=== PATIENT | male | born 1995 | race Caucasian/White ===

== ENCOUNTER 2016-04-09 09:58 | Emergency (ER) | payer OTHER ==
--- NOTE | 2016-04-09 13:59 | Emergency Department Report ---
ED Lower Extremity HPI - General Chief Complaint: Extremity Injury, Lower Stated Complaint: LT LEG PAIN/FALL Time Seen by Provider: 04/09/16 13:58 Source: patient, family Mode of arrival: Ambulatory Limitations: No Limitations - History of Present Illness Initial Comments: Patient here reports that he slipped and fell off the porch a few weeks ago and complaining of left knee pain. Denies any back pain, chest pain, headache or neck pain. Pain is 8 out of 10 to the left knee. He said he took Tylenol but it didn't work for him. Denies any dizziness or blurred vision. Denies any numbness or tingling to extremities. MD Complaint: knee injury (and pain) Onset/Timin -: week(s) Injury: Knee: Left (pain after falling.) Type of Injury: hyperextension Place: home Severity: severe Severity scale (0 -10): 8 Improves With: nothing Worsens With: weight bearing, movement Context: fall Associated Symptoms: ambulatory. denies: snap/pop sensation, swelling, numbness , tingling Treatments Prior to Arrival: other (none) - Related Data Previous Rx's Medication Instructions Recorded Last Taken Type traMADol [Ultram] 50 mg PO Q6HR PRN #20 tablet 04/09/16 Unknown Rx Allergies Allergy/AdvReac Type Severity Reaction Status Date / Time No Known Allergies Allergy Unverified 04/09/16 12:03 ED Review of Systems ROS: Stated complaint: LT LEG PAIN/FALL Other details as noted in HPI Comment: All other systems reviewed and negative Constitutional: denies: chills, fever Respiratory: no symptoms reported Cardiovascular: denies: chest pain, palpitations, edema, syncope Gastrointestinal: denies: abdominal pain, nausea, vomiting Musculoskeletal: arthralgia. denies: back pain, joint swelling Skin: denies: rash Neurological: denies: headache, weakness, numbness, paresthesias, confusion, abnormal gait, vertigo ED Past Medical Hx - Past Medical History Previous Medical History?: No - Surgical History Past Surgical History?: No - Family History Family history: no significant - Social History Smoking Status: Never Smoker Substance Use Type: None - Medications Home Medications: Home Medications Medication Instructions Recorded Confirmed Last Taken Type traMADol [Ultram] 50 mg PO Q6HR PRN #20 tablet 04/09/16 Unknown Rx ED Physical Exam - General Limitations: No Limitations General appearance: alert, in no apparent distress - Head Head exam: Present: atraumatic, normocephalic, normal inspection - Neck Neck exam: Present: normal inspection, full ROM. Absent: tenderness, meningismus, lymphadenopathy - Respiratory Respiratory exam: Present: normal lung sounds bilaterally. Absent: respiratory distress, chest wall tenderness - Cardiovascular Cardiovascular Exam: Present: normal rhythm, bradycardia, normal heart sounds - GI/Abdominal GI/Abdominal exam: Present: soft, normal bowel sounds. Absent: distended, tenderness, guarding, rebound, rigid - Extremities Exam Extremities exam: Present: normal inspection, full ROM, tenderness (left anterior knee), normal capillary refill. Absent: pedal edema, joint swelling, calf tenderness - Expanded Lower Extremity Exam Left Hip exam: Present: normal inspection, full ROM, pelvic stability. Absent: tenderness, swelling, abrasion, laceration, ecchymosis, deformity, crepidus, dislocation, erythema, external rotation, internal rotation, shortening Upper Leg exam: Present: normal inspection, full ROM. Absent: tenderness, swelling, abrasion, laceration, ecchymosis, deformity, crepidus, dislocation, erythema Knee exam: Present: normal inspection, full ROM, tenderness, full knee extension. Absent: swelling, abrasion, laceration, ecchymosis, deformity, crepidus, dislocation, erythema, effusion, pain w/ pronation/supination, posterior draw sign, pain/laxity with valgus, pain/laxity with varus Lower Leg exam: Present: normal inspection, full ROM. Absent: tenderness, swelling, abrasion, laceration, ecchymosis, deformity, crepidus, dislocation, erythema, palpable cord, Kimberly's sign Ankle exam: Present: normal inspection, full ROM. Absent: tenderness, swelling , abrasion, laceration, ecchymosis, deformity, crepidus, dislocation, erythema, anterior draw sign Foot/Toe exam: Present: normal inspection, full ROM. Absent: tenderness, swelling, abrasion, laceration, ecchymosis, deformity, crepidus, dislocation, erythema, amputation, puncture wound, foreign body, calcaneal tenderness, tenderness at base of 5th metatarsal, nail avulsion, subungual hematoma Neuro vascular tendon exam: Present: no vascular compromise. Absent: pulse deficit, abnormal cap refill, motor deficit, sensory deficit, tendon deficit, extremity cold to touch, pallor, abnormal 2-point discrimination, decreased fine /light touch, foot drop, peroneal nerve deficit, significant pain with passive ROM of distal joint Gait: Positive: observed and normal - Back Exam Back exam: Present: normal inspection, full ROM. Absent: tenderness, CVA tenderness (R), CVA tenderness (L), muscle spasm, paraspinal tenderness, vertebral tenderness, rash noted - Neurological Exam Neurological exam: Present: alert, oriented X3, normal gait, reflexes normal. Absent: motor sensory deficit - Psychiatric Psychiatric exam: Present: normal affect, normal mood - Skin Skin exam: Present: warm, dry, intact, normal color. Absent: rash ED Course Vital Signs 04/09/16 12:00 Temperature 97.7 F Pulse Rate 54 L Respiratory 18 Rate Blood Pressure 138/81 O2 Sat by Pulse 100 Oximetry - Reevaluation(s) Reevaluation #1: 04/09/16 14:24 Patient given [place] one tablet in emergency room for left knee pain. - Orthopedic Splinting/Casting Injury #1 Side: left Lower Extremity Injury Location: knee Lower Extremity Immobilizer: Maycol wrap ED Lower Extremity MDM - Radiology Data Radiology results: report reviewed X-ray of the left knee reads unremarkable left knee. - Medical Decision Making ED course: She given [place] 5/325 one tablets emergency room for left knee pain. Discussed with patient that his left knee is x-ray revealed no fracture or dislocation. I explained to patient that he will need to follow-up with orthopedic doctor if he still continues to have left knee pain. Seizure note for splinting details. Patient discharged home with prescription for Motrin. Critical care attestation.: If time is entered above; I have spent that time in minutes in the direct care of this critically ill patient, excluding procedure time. ED Disposition Clinical Impression: Arthralgia of left knee Left knee injury Qualifiers: Encounter type: sequela Qualified Code(s): S89.92XS - Unspecified injury of left lower leg, sequela Disposition: DISCHARGED TO HOME OR SELFCARE Is pt being admited?: No Does the pt Need Aspirin: No Condition: Stable Instructions: Arthralgia (ED), Knee Pain (ED), Knee Exercises (GEN) Prescriptions: traMADol [Ultram] 50 mg PO Q6HR PRN #20 tablet PRN Reason: Pain Referrals: STEVIE BA MD [Staff Physician] - 2-3 Days Forms: Work/School Release Form(ED)
[2016-04-09] MEDS ORDERED: NORCO 5/325 PO ONE (14:04)
--- NOTE | 2016-04-09 14:29 | XRay Report ---
LEFT KNEE, 3 views: History: Left knee pain after fall. The bony architecture is intact without evidence of fracture or dislocation. No significant soft tissue abnormality is seen. IMPRESSION: Unremarkable left knee.
[2016-04-09 15:09] VITALS: BP 134/80
== END 2016-04-09 15:08 | disposition home or self-care (01) ==
LOC: ED 09:58
DX: S89.92XS Unspecified injury of left lower leg, sequela (principal); W01.0XXA Fall on same level from slipping, tripping and stumbling without subsequent striking against object, initial encounter; Y93.89 Activity, other specified; Y92.89 Other specified places as the place of occurrence of the external cause; Y99.8 Other external cause status
CPT/HCPCS: 99283

== ENCOUNTER 2016-09-28 13:14 | Emergency (ER) | payer SELFPAY ==
[2016-09-28 14:43] LABS: Urine Drugs of Abuse Note Disclamer
[2016-09-28 14:52] LABS: Bacteria,Urine 1+ /HPF (Negative); Bilirubin,Urine NEG (Negative); Blood,Urine MOD (Negative); Ketones,Urine NEG (Negative); Leukocyte Esterase,Urine NEG (Negative); Mucus,Urine 3+ /HPF; Nitrite,Urine NEG (Negative); Urobilinogen,Urine < 2.0 mg/dL (<2.0)
[2016-09-28 14:58] LABS: Basophils % (Auto) 0.3 % (0.0-1.8); Eosinophils % (Auto) 0.6 % (0.0-4.3); Hematocrit 44.7 % (35.5-45.6); Hemoglobin 14.9 gm/dl (11.8-15.2); Mean Corpuscular HGB Conc 33 % (32-34); Mean Corpuscular Hemoglobin 29 pg (28-32); Mean Corpuscular Volume 86 fl (84-94); Platelet Count 315 K/mm3 (140-440); Red Blood Count 5.22 M/mm3 (3.65-5.03); White Blood Count 12.2 K/mm3 (4.5-11.0)
[2016-09-28 15:47] LABS: Anion Gap 23 mmol/L; BUN/Creatinine Ratio 13.75; Blood Urea Nitrogen 11 mg/dL (9-20); Calcium 9.5 mg/dL (8.4-10.2); Carbon Dioxide 22 mmol/L (22-30); Chloride 95.6 mmol/L (98-107); Glucose 100 mg/dL (75-100); Potassium 3.9 mmol/L (3.6-5.0); Sodium 137 mmol/L (137-145)
[2016-09-29] MEDS ORDERED: MORPHINE IV ONE (02:57)
[2016-09-29] MEDS ORDERED: ZOFRAN IV ONE (02:57)
[2016-09-29] MEDS ORDERED: TORADOL IV ONE (02:57)
[2016-09-29] MEDS ORDERED: NACL 0.9% 1000 ML 1,000 ML IV ONE (02:57)
--- NOTE | 2016-09-29 03:01 | Emergency Department Report ---
HPI - General Chief Complaint: Nausea/Vomiting/Diarrhea Time Seen by Provider: 09/29/16 02:53 - HPI HPI: Patient complains of cough, ear pain, chest pain, shortness of breath, nausea, vomiting, diarrhea. Symptoms as well as going on for the past 2 days and did not improve from [id number] medications. ED Past Medical Hx - Past Medical History Previous Medical History?: No - Surgical History Past Surgical History?: No - Family History Family history: no significant - Social History Smoking Status: Current Every Day Smoker Substance Use Type: Marijuana - Medications Home Medications: Home Medications Medication Instructions Recorded Confirmed Last Taken Type Azithromycin [Zithromax] 250 mg PO DAILY #6 tablet 09/29/16 Unknown Rx Sulfamethoxazole/Trimethoprim 1 each PO BID #20 tablet 09/29/16 Unknown Rx [Bactrim DS TAB] traMADol [Ultram 50 MG tab] 50 mg PO Q6HR PRN #20 tablet 09/29/16 Unknown Rx ED Review of Systems ROS: Stated complaint: BODY PAIN Other details as noted in HPI Comment: All other systems reviewed and negative Respiratory: shortness of breath Cardiovascular: chest pain Physical Exam - Physical Exam Vital Signs: Vital Signs 09/28/16 09/28/16 09/29/16 14:15 20:49 02:06 Temperature 98.3 F 98.2 F Pulse Rate 90 80 Respiratory 16 18 Rate Blood Pressure 142/80 142/80 Blood Pressure [Left] O2 Sat by Pulse 97 96 96 Oximetry 09/29/16 02:17 Temperature 98.2 F Pulse Rate 82 Respiratory 17 Rate Blood Pressure Blood Pressure 139/73 [Left] O2 Sat by Pulse 97 Oximetry Physical Exam: Gen. alert and oriented 3 in no distress Head atraumatic normocephalic Eyes PERR LA EOMI Chest regular rate and rhythm normal S1-S2 lungs decreased breath sound bilaterally Abdomen soft nondistended Back no point tenderness paravertebral tenderness Neuro no focal deficit. Psych normal mood. ED Course Vital Signs 09/28/16 09/28/16 09/29/16 14:15 20:49 02:06 Temperature 98.3 F 98.2 F Pulse Rate 90 80 Respiratory 16 18 Rate Blood Pressure 142/80 142/80 Blood Pressure [Left] O2 Sat by Pulse 97 96 96 Oximetry 09/29/16 02:17 Temperature 98.2 F Pulse Rate 82 Respiratory 17 Rate Blood Pressure Blood Pressure 139/73 [Left] O2 Sat by Pulse 97 Oximetry - Reevaluation(s) Reevaluation #1: 09/29/16 05:49 CT findings explained at length to patient. Patient does not have any risk factors for TB. Does not have any hemoptysis, night sweats. However he will go to health department for PPD testing stated he had negative PPD last year. ED Medical Decision Making - Lab Data Result diagrams: 09/28/16 14:44 09/28/16 14:44 Critical care attestation.: If time is entered above; I have spent that time in minutes in the direct care of this critically ill patient, excluding procedure time. ED Disposition Clinical Impression: Pneumonitis Disposition: DC-01 TO HOME OR SELFCARE Is pt being admited?: No Does the pt Need Aspirin: No Condition: Stable Prescriptions: Azithromycin [Zithromax] 250 mg PO DAILY #6 tablet Sulfamethoxazole/Trimethoprim [Bactrim DS TAB] 1 each PO BID #20 tablet traMADol [Ultram 50 MG tab] 50 mg PO Q6HR PRN #20 tablet PRN Reason: Pain Referrals: PRIMARY CARE,MD [Primary Care Provider] - 3-5 Days
[2016-09-29] MEDS ORDERED: NACL ONE (03:36)
--- NOTE | 2016-09-29 05:14 | Cat Scan Report ---
FINAL REPORT EXAM: CT CHEST W CONTRAST. HISTORY: Chest pain and shortness of breath. TECHNIQUE: CT angiogram of the chest was performed, with 2.5 mm thick axial images obtained after the intravenous administration of contrast. Sagittal and coronal reformatted images were also obtained. No prior studies are available for comparison. FINDINGS: The heart is normal in size. The thoracic aorta is normal in caliber, without aneurysm or dissection. No definite filling defect is seen in the central or proximal segmental pulmonary arteries to suggest pulmonary embolus. There is slight amorphous hazy soft tissue in the anterior-superior mediastinum, in keeping with residual thymic tissue. There is subcarinal lymphadenopathy, with 4.0 x 2.5 cm conglomerate. No discrete mass or nodule is seen in the visualized thyroid gland. Examination of the lung parenchyma demonstrates extensive patchy nodular densities seen throughout the right lower lobe, with relative sparing of its superior segment. These are in a predominantly centrilobular distribution, with individual patchy nodules measuring up to 5-6 mm. These are nonspecific, but most common etiologies include multifocal infection (including TB and fungal disease) and hypersensitivity pneumonitis. Clinical correlation and follow-up is recommended. The left lung is clear. The trachea and visualized proximal airways are patent. There is no pleural or pericardial effusion. The spleen is enlarged, measuring 15.0 cm in length. The remainder of the visualized upper abdomen is unremarkable. There is a slight upper thoracic dextroscoliosis, which may be partially positional. IMPRESSION: 1. No definite filling defect seen in the central or proximal segmental pulmonary arteries to suggest pulmonary embolism. 2. Extensive small patchy nodular densities seen throughout the right lower lobe, in predominantly centrilobular distribution. These are nonspecific, and differential possibilities include multifocal infection (including TB and fungal disease) and hypersensitivity pneumonitis. 3. Associated subcarinal lymphadenopathy. 4. Moderate splenomegaly.
[2016-09-29 06:05] VITALS: BP 126/58
== END 2016-09-29 06:07 | disposition home or self-care (01) ==
LOC: ED 13:14
DX: J18.9 Pneumonia, unspecified organism (principal); F17.200 Nicotine dependence, unspecified, uncomplicated
CPT/HCPCS: 36415; 71260; 80048; 80307; 81001; 85025; 85379; 96361; 96374; 96375; 99284; J1885; J2270; J2405; J7030

== ENCOUNTER 2018-03-02 16:52 | Emergency (ER) | payer SELFPAY ==
[2018-03-02 17:09] VITALS: BP 160/91
[2018-03-02] MEDS ORDERED: IBUPROFEN PO ONE (21:52)
--- NOTE | 2018-03-02 21:56 | Emergency Department Report ---
- General Chief Complaint: Upper Respiratory Infection Stated Complaint: FLU LIKE Time Seen by Provider: 03/02/18 21:03 Source: patient Mode of arrival: Ambulatory Limitations: No Limitations - History of Present Illness Initial Comments: 22-year-old male presents to the emergency room for flulike symptoms. Patient reports that yesterday he started feeling feverish with body aches and coughing Raynaud's nasal congestion ears feel clogged and sore throat. Patient reports he has not really had much of an appetite since Friday. He denies any nausea vomiting or abdominal pains. Patient reports he is tried [id number] TheraFlu. He denies any sick contact. Patient reports that he often works outside and he was working in the rain on Friday. Patient reports no past medical history, currently takes no medications on a daily basis and has no known drug allergies. Patient does report he had pneumonia last year. MD Complaint: fever, cough, sore throat, rhinorrhea, nasal congestion -: days(s) (1) Severity: severe Severity scale (0 -10): 10 Improves With: nothing Worsens With: other (cough) Associated Symptoms: fever, chills, myalgias, rhinorrhea, nasal congestion, cough, chest pain (with off). denies: shortness of breath, abdominal pain, nausea, vomiting, diarrhea Treatments Prior to Arrival: "cold medicine" - Related Data Previous Rx's Medication Instructions Recorded Last Taken Type Azithromycin [Zithromax] 250 mg PO DAILY #6 tablet 09/29/16 Unknown Rx Sulfamethoxazole/Trimethoprim 1 each PO BID #20 tablet 09/29/16 Unknown Rx [Bactrim DS TAB] traMADol [Ultram 50 MG tab] 50 mg PO Q6HR PRN #20 tablet 09/29/16 Unknown Rx Dexchlorpheniram/Phenylephrine 1 each PO Q6H #20 tab 03/02/18 Unknown Rx [Rymed Tablet] Ibuprofen [Motrin 800 MG tab] 800 mg PO Q8HR PRN #30 tablet 03/02/18 Unknown Rx Allergies Allergy/AdvReac Type Severity Reaction Status Date / Time No Known Allergies Allergy Unverified 04/09/16 12:03 ED Review of Systems ROS: Stated complaint: FLU LIKE Other details as noted in HPI Comment: All other systems reviewed and negative ED Past Medical Hx - Past Medical History Previous Medical History?: No - Surgical History Past Surgical History?: No - Social History Smoking Status: Current Every Day Smoker Substance Use Type: None - Medications Home Medications: Home Medications Medication Instructions Recorded Confirmed Last Taken Type Azithromycin [Zithromax] 250 mg PO DAILY #6 tablet 09/29/16 Unknown Rx Sulfamethoxazole/Trimethoprim 1 each PO BID #20 tablet 09/29/16 Unknown Rx [Bactrim DS TAB] traMADol [Ultram 50 MG tab] 50 mg PO Q6HR PRN #20 tablet 09/29/16 Unknown Rx Dexchlorpheniram/Phenylephrine 1 each PO Q6H #20 tab 03/02/18 Unknown Rx [Rymed Tablet] Ibuprofen [Motrin 800 MG tab] 800 mg PO Q8HR PRN #30 tablet 03/02/18 Unknown Rx ED Physical Exam - General Limitations: No Limitations General appearance: alert, in no apparent distress - Head Head exam: Present: atraumatic, normocephalic - Eye Eye exam: Present: EOMI - ENT ENT exam: Present: mucous membranes moist, TM's normal bilaterally - Neck Neck exam: Present: tenderness, full ROM. Absent: lymphadenopathy - Respiratory Respiratory exam: Present: normal lung sounds bilaterally. Absent: respiratory distress - Cardiovascular Cardiovascular Exam: Present: regular rate, normal rhythm. Absent: systolic murmur, diastolic murmur, rubs, gallop - GI/Abdominal GI/Abdominal exam: Present: soft, normal bowel sounds - Extremities Exam Extremities exam: Present: normal inspection, full ROM - Neurological Exam Neurological exam: Present: alert, oriented X3, normal gait - Psychiatric Psychiatric exam: Present: normal affect, normal mood - Skin Skin exam: Present: warm, dry, intact, normal color. Absent: rash ED Course Vital Signs 03/02/18 03/02/18 03/02/18 17:06 22:28 23:21 Temperature 98.9 F Pulse Rate 61 Respiratory 18 20 20 Rate Blood Pressure 160/91 O2 Sat by Pulse 98 Oximetry ED Medical Decision Making - Medical Decision Making Patient has been evaluated with this provider in fast track. Ibuprofen 800 mg given for pain management. Chest x-rays in order for chest pain with cough and feverish. Rapid strep to be sent out. Chest x-ray is negative normal examination rapid influenza negative. Patient be discharged home on ibuprofen 800 mg and Rymed Patient's instructed to drink plenty of fluids and to follow up with his primary care provider if symptoms persist or gets worse. Critical care attestation.: If time is entered above; I have spent that time in minutes in the direct care of this critically ill patient, excluding procedure time. ED Disposition Clinical Impression: Viral syndrome Disposition: DC-01 TO HOME OR SELFCARE Is pt being admited?: No Does the pt Need Aspirin: No Condition: Stable Instructions: Viral Syndrome (ED) Additional Instructions: Your x-ray was negative for any pneumonia or bronchitis. Your flu test was negative. He appeared to have a viral syndrome. He needs to take medication to treat her symptoms. Please increase her water intake and take medication as prescribed. If his symptoms persist or gets worse please follow up with her primary care provider. Prescriptions: Dexchlorpheniram/Phenylephrine [Rymed Tablet] 1 each PO Q6H #20 tab Ibuprofen [Motrin 800 MG tab] 800 mg PO Q8HR PRN #30 tablet PRN Reason: Pain , Severe (7-10) Referrals: PRIMARY CARE, [Primary Care Provider] - 3-5 Days Forms: Work/School Release Form(ED)
--- NOTE | 2018-03-02 23:20 | XRay Report ---
FINAL REPORT PROCEDURE: XR CHEST ROUTINE 2V TECHNIQUE: PA and lateral chest radiographs were obtained. CPT 89074 HISTORY: cough COMPARISON: No prior studies are available for comparison. FINDINGS: Heart: Normal. Mediastinum/Vessels: Normal. Lungs/Pleural space: Normal. Bony thorax: No acute osseous abnormality. Other: IMPRESSION: Normal examination.
== END 2018-03-03 00:23 | disposition home or self-care (01) ==
LOC: ED 16:52
DX: B34.9 Viral infection, unspecified (principal); F17.200 Nicotine dependence, unspecified, uncomplicated
CPT/HCPCS: 71046; 87400; 99283

== ENCOUNTER 2018-09-21 08:09 | Emergency (ER) | payer OTHER ==
[2018-09-21 08:17] VITALS: BP 139/67
--- NOTE | 2018-09-21 08:53 | Emergency Department Report ---
ED General Adult HPI - General Chief complaint: Upper Respiratory Infection Stated complaint: FLU/COLD SYMPTOMS/CHEST PAIN Time Seen by Provider: 09/21/18 08:29 Source: patient Mode of arrival: Ambulatory Limitations: No Limitations - History of Present Illness Initial comments: Patient was estimates upon the chief complaint of a cough with fever for the last 2-3 days. Patient states that with coughing he has chest pain throughout his whole chest. Patient does endorse a productive cough and runny nose. Also complains of body aches. Patient denies any recent travel. -: Gradual Severity scale (0 -10): 0 Consistency: constant Improves with: none Worsens with: none Associated Symptoms: denies other symptoms Treatments Prior to Arrival: none - Related Data Previous Rx's Medication Instructions Recorded Last Taken Type Azithromycin [Zithromax] 250 mg PO DAILY #6 tablet 09/29/16 Unknown Rx Sulfamethoxazole/Trimethoprim 1 each PO BID #20 tablet 09/29/16 Unknown Rx [Bactrim DS TAB] traMADol [Ultram 50 MG tab] 50 mg PO Q6HR PRN #20 tablet 09/29/16 Unknown Rx Dexchlorpheniram/Phenylephrine 1 each PO Q6H #20 tab 03/02/18 Unknown Rx [Rymed Tablet] Ibuprofen [Motrin 800 MG tab] 800 mg PO Q8HR PRN #30 tablet 03/02/18 Unknown Rx ALBUTEROL Inhaler (OR & NICU) 2 puff IH Q4HR PRN #1 inhalation 09/21/18 Unknown Rx [ProAir HFA Inhaler] Azithromycin [Zithromax Z-MERCY] 250 mg PO DAILY #6 tablet 09/21/18 Unknown Rx Benzonatate [Tessalon Perles] 100 mg PO Q8HR PRN #20 capsule 09/21/18 Unknown Rx Cetirizine HCl [Zyrtec 10mg tab] 10 mg PO DAILY #30 tablet 09/21/18 Unknown Rx Codeine Phosphate/Guaifenesin 180 ml PO Q12HR PRN #180 liquid 09/21/18 Unknown Rx [Guaifenesin-Codeine Syrup] predniSONE [Deltasone] 20 mg PO DAILY #15 tablet 09/21/18 Unknown Rx Allergies Allergy/AdvReac Type Severity Reaction Status Date / Time No Known Allergies Allergy Unverified 04/09/16 12:03 ED Review of Systems ROS: Stated complaint: FLU/COLD SYMPTOMS/CHEST PAIN Other details as noted in HPI Comment: All other systems reviewed and negative Constitutional: denies: chills, fever Eyes: denies: eye pain, eye discharge, vision change ENT: denies: ear pain, throat pain Respiratory: cough. denies: shortness of breath, wheezing Cardiovascular: denies: chest pain, palpitations Endocrine: no symptoms reported Gastrointestinal: denies: abdominal pain, nausea, diarrhea Genitourinary: denies: urgency, dysuria Musculoskeletal: denies: back pain, joint swelling, arthralgia Skin: denies: rash, lesions Neurological: denies: headache, weakness, paresthesias Psychiatric: denies: anxiety, depression Hematological/Lymphatic: denies: easy bleeding, easy bruising ED Past Medical Hx - Past Medical History Previous Medical History?: No - Surgical History Past Surgical History?: No - Social History Smoking Status: Never Smoker Substance Use Type: None - Medications Home Medications: Home Medications Medication Instructions Recorded Confirmed Last Taken Type Azithromycin [Zithromax] 250 mg PO DAILY #6 tablet 09/29/16 Unknown Rx Sulfamethoxazole/Trimethoprim 1 each PO BID #20 tablet 09/29/16 Unknown Rx [Bactrim DS TAB] traMADol [Ultram 50 MG tab] 50 mg PO Q6HR PRN #20 tablet 09/29/16 Unknown Rx Dexchlorpheniram/Phenylephrine 1 each PO Q6H #20 tab 03/02/18 Unknown Rx [Rymed Tablet] Ibuprofen [Motrin 800 MG tab] 800 mg PO Q8HR PRN #30 tablet 03/02/18 Unknown Rx ALBUTEROL Inhaler (OR & NICU) 2 puff IH Q4HR PRN #1 inhalation 09/21/18 Unknown Rx [ProAir HFA Inhaler] Azithromycin [Zithromax Z-MERCY] 250 mg PO DAILY #6 tablet 09/21/18 Unknown Rx Benzonatate [Tessalon Perles] 100 mg PO Q8HR PRN #20 capsule 09/21/18 Unknown Rx Cetirizine HCl [Zyrtec 10mg tab] 10 mg PO DAILY #30 tablet 09/21/18 Unknown Rx Codeine Phosphate/Guaifenesin 180 ml PO Q12HR PRN #180 liquid 09/21/18 Unknown Rx [Guaifenesin-Codeine Syrup] predniSONE [Deltasone] 20 mg PO DAILY #15 tablet 09/21/18 Unknown Rx ED Physical Exam - General Limitations: No Limitations General appearance: alert, in no apparent distress - Head Head exam: Present: atraumatic, normocephalic - Eye Eye exam: Present: normal appearance, PERRL, EOMI - ENT ENT exam: Present: mucous membranes moist - Neck Neck exam: Present: normal inspection - Respiratory Respiratory exam: Present: wheezes. Absent: respiratory distress - Cardiovascular Cardiovascular Exam: Present: regular rate, normal rhythm. Absent: systolic murmur, diastolic murmur, rubs, gallop - GI/Abdominal GI/Abdominal exam: Present: soft, normal bowel sounds. Absent: distended, tenderness - Rectal Rectal exam: Present: deferred - Extremities Exam Extremities exam: Present: normal inspection - Back Exam Back exam: Present: normal inspection - Neurological Exam Neurological exam: Present: alert, oriented X3, CN II-XII intact. Absent: motor sensory deficit - Psychiatric Psychiatric exam: Present: normal affect, normal mood - Skin Skin exam: Present: warm, dry, intact, normal color. Absent: rash ED Course Vital Signs 09/21/18 08:11 Temperature 97.7 F Pulse Rate 66 Respiratory 22 Rate Blood Pressure 139/67 O2 Sat by Pulse 98 Oximetry ED Medical Decision Making - Medical Decision Making Discussed plane of care with patient Critical care attestation.: If time is entered above; I have spent that time in minutes in the direct care of this critically ill patient, excluding procedure time. ED Disposition Clinical Impression: Bronchitis Disposition: DC-01 TO HOME OR SELFCARE Is pt being admited?: No Does the pt Need Aspirin: No Condition: Stable Instructions: Acute Bronchitis (ED), Chronic Bronchitis (ED) Additional Instructions: return if worse Prescriptions: predniSONE [Deltasone] 20 mg PO DAILY #15 tablet Codeine Phosphate/Guaifenesin [Guaifenesin-Codeine Syrup] 180 ml PO Q12HR PRN #180 liquid PRN Reason: pain ALBUTEROL Inhaler (OR & NICU) [ProAir HFA Inhaler] 2 puff IH Q4HR PRN #1 inhalation PRN Reason: Shortness Of Breath Benzonatate [Tessalon Perles] 100 mg PO Q8HR PRN #20 capsule PRN Reason: Cough Azithromycin [Zithromax Z-MERCY] 250 mg PO DAILY #6 tablet Cetirizine HCl [Zyrtec 10mg tab] 10 mg PO DAILY #30 tablet Referrals: TAMI OBRIEN MD [Primary Care Provider] - 3-5 Days [facility] [Provider Group] - 3-5 Days [facility] [Provider Group] - 3-5 Days Time of Disposition: 08:51
--- NOTE | 2018-09-21 09:16 | XRay Report ---
CHEST 1 VIEW INDICATION: Chest pain for one day. COMPARISON: None available FINDINGS: Support devices: None. Heart: Within normal limits. Lungs/Pleura: No acute air space or interstitial disease. Additional findings: None. IMPRESSION: No acute findings. Signer Name: Chetan Ivory Jr, MD Signed: 09/21/2018 9:12 AM Workstation Name: [id number]
== END 2018-09-21 09:15 | disposition home or self-care (01) ==
LOC: ED 08:09
DX: J40 Bronchitis, not specified as acute or chronic (principal); Z79.899 Other long term (current) drug therapy
CPT/HCPCS: 71045; 93005; 93010

== ENCOUNTER 2020-07-19 18:48 | Emergency (ER) | payer SELFPAY ==
[2020-07-19 20:06] VITALS: BP 125/65
--- NOTE | 2020-07-19 20:41 | Emergency Department Report ---
ED General Adult HPI - General Chief complaint: Extremity Injury, Lower Stated complaint: LEFT LEG PAIN Time Seen by Provider: 07/19/20 20:38 Source: patient Mode of arrival: Ambulatory Limitations: No Limitations - History of Present Illness Initial comments: 25-year-old male patient presents to the emergency department with complaints of traumatic left knee pain starting 1 week ago. Patient states he was at work when he slipped on hay and sustained a ground-level fall onto his left knee. There was no resulting head injury or loss of consciousness. Patient has been ambulatory since the fall however pain is worse with weightbearing. No medications prior to arrival. Denies hip pain, lower leg pain, ankle pain, foot pain, paresthesias, numbness, skin color changes. Denies other complaints at this time. - Related Data Previous Rx's Medication Instructions Recorded Last Taken Type Azithromycin [Zithromax] 250 mg PO DAILY #6 tablet 09/29/16 Unknown Rx Sulfamethoxazole/Trimethoprim 1 each PO BID #20 tablet 09/29/16 Unknown Rx [Bactrim DS TAB] traMADoL [Ultram 50 MG tab] 50 mg PO Q6HR PRN #20 tablet 09/29/16 Unknown Rx Dexchlorpheniram/Phenylephrine 1 each PO Q6H #20 tab 03/02/18 Unknown Rx [Rymed Tablet] Ibuprofen [Motrin 800 MG tab] 800 mg PO Q8HR PRN #30 tablet 03/02/18 Unknown Rx Albuterol Mdi (or & Nicu Only) 2 puff IH Q4HR PRN #1 inhalation 09/21/18 Unknown Rx [ProAir HFA Inhaler] Azithromycin [Zithromax Z-MERCY] 250 mg PO DAILY #6 tablet 09/21/18 Unknown Rx Benzonatate [Tessalon Perles] 100 mg PO Q8HR PRN #20 capsule 09/21/18 Unknown Rx Cetirizine HCl [Zyrtec 10mg tab] 10 mg PO DAILY #30 tablet 09/21/18 Unknown Rx Codeine Phosphate/Guaifenesin 180 ml PO Q12HR PRN #180 liquid 09/21/18 Unknown Rx [Guaifenesin-Codeine Syrup] predniSONE [Deltasone] 20 mg PO DAILY #15 tablet 09/21/18 Unknown Rx Naproxen 500 mg PO BID #20 tablet 07/19/20 Unknown Rx Allergies Allergy/AdvReac Type Severity Reaction Status Date / Time No Known Allergies Allergy Unverified 04/09/16 12:03 ED Review of Systems ROS: Stated complaint: LEFT LEG PAIN Other details as noted in HPI Other: CARDIOVASCULAR: Negative for chest pain. PULMONARY: Negative for dyspnea. GASTROINTESTINAL: Negative for abdominal pain. MUSCULOSKELETAL: Positive for left knee pain. NEUROLOGICAL: Negative for headache. INTEGUMENTARY: Negative for ecchymosis. ED Past Medical Hx - Past Medical History Previous Medical History?: No - Surgical History Past Surgical History?: No - Social History Smoking Status: Never Smoker Substance Use Type: None - Medications Home Medications: Home Medications Medication Instructions Recorded Confirmed Last Taken Type Azithromycin [Zithromax] 250 mg PO DAILY #6 tablet 09/29/16 Unknown Rx Sulfamethoxazole/Trimethoprim 1 each PO BID #20 tablet 09/29/16 Unknown Rx [Bactrim DS TAB] traMADoL [Ultram 50 MG tab] 50 mg PO Q6HR PRN #20 tablet 09/29/16 Unknown Rx Dexchlorpheniram/Phenylephrine 1 each PO Q6H #20 tab 03/02/18 Unknown Rx [Rymed Tablet] Ibuprofen [Motrin 800 MG tab] 800 mg PO Q8HR PRN #30 tablet 03/02/18 Unknown Rx Albuterol Mdi (or & Nicu Only) 2 puff IH Q4HR PRN #1 inhalation 09/21/18 Unknown Rx [ProAir HFA Inhaler] Azithromycin [Zithromax Z-MERCY] 250 mg PO DAILY #6 tablet 09/21/18 Unknown Rx Benzonatate [Tessalon Perles] 100 mg PO Q8HR PRN #20 capsule 09/21/18 Unknown Rx Cetirizine HCl [Zyrtec 10mg tab] 10 mg PO DAILY #30 tablet 09/21/18 Unknown Rx Codeine Phosphate/Guaifenesin 180 ml PO Q12HR PRN #180 liquid 09/21/18 Unknown Rx [Guaifenesin-Codeine Syrup] predniSONE [Deltasone] 20 mg PO DAILY #15 tablet 09/21/18 Unknown Rx Naproxen 500 mg PO BID #20 tablet 07/19/20 Unknown Rx ED Physical Exam - General Limitations: No Limitations - Other Other exam information: General: Awake, appropriately interactive, no acute distress. Neck: Supple. Full range of motion intact. Cardiovascular: Normal peripheral perfusion. Pulmonary: No respiratory distress. Patient is speaking normally without use of accessory muscles. Skin: No apparent rashes or lesions. Neurological: No facial asymmetry. Speech is clear. Follows commands. Patient is alert and oriented. Musculoskeletal: Tenderness to palpation most pronounced along the lateral aspect of the left knee without obvious deformity or dislocation. Pain is reproducible with both valgus and varus stress. Flexion and extension mechanisms of the knee intact but painful. Distal neurovascular and motor/sensory function intact. Psych: Cooperative. Appropriate mood and affect. ED Course Vital Signs 07/19/20 20:03 Temperature 97.8 F Pulse Rate 53 L Respiratory 18 Rate Blood Pressure 125/65 O2 Sat by Pulse 100 Oximetry ED Medical Decision Making - Radiology Data [facility] [address] [place] [address] XRay Report Signed Patient: HELLEN MILLARD MR#: [id number] : 1995 Acct:[id number] Age/Sex: 25 / M ADM Date: 07/19/20 Loc: ED Attending Dr: Ordering Physician: MOE PEREZ Date of Service: 07/19/20 Procedure(s): XR knee 3V LT Accession Number(s): [id number] cc: MOE PEREZ Fluoro Time In Minutes: LEFT KNEE 3 VIEW(S) INDICATION / CLINICAL INFORMATION: MAIN COMPARISON: 04/09/2016 FINDINGS: BONES / JOINT(S): Slightly irregular appearance of the lateral tibial spine when compared to the prior radiograph from 04/09/2016. The cortex appears slightly up lifted in this region possibly representing a small ACL avulsion injury. Consider further evaluation with MRI. No dislocation. No acute displaced fracture. No significant arthritis. SOFT TISSUES: No significant abnormality. ADDITIONAL FINDINGS: None. Signer Name: Ronnie Monson MD Signed: 07/19/2020 9:01 PM Workstation Name: [id number] Transcribed By: Dictated By: RONNIE MONSON III Electronically Authenticated By: RONNIE MONSON III Signed Date/Time: 07/19/202100 DD/ 56 TD/TT: - Medical Decision Making Differential diagnosis including but not limited to: sprain, strain, fracture, contusion, dislocation, collateral ligament injury, meniscal injury On reevaluation, patient remains stable. Repeat neurovascular exam remains intact. No radiographic evidence of fracture or dislocation; findings suggestive of possible ACL injury, outpatient MRI recommended for further evaluation. Patient will be discharged home with knee immobilizer, appropriate analgesics, crutches, and referral to orthopedics for close outpatient follow- up. Patient expressed understanding and is agreeable to plan of care. RICE precautions discussed. Strict return precautions provided. Repeat exam is unremarkable and benign. History, exam, diagnostic testing, and current condition do not suggest worrisome pathology to warrant further testing, continued ED treatment, admission, or surgical evaluation at this point. Given the low probability of a significant medical illness, it would be more likely to result in harm than benefit to perform further testing at this stage. Discussed findings, presumptive diagnosis, need for follow-up and specific signs/symptoms that should prompt immediate return to the emergency department. Instructions were explained in detail to the patient in addition to giving written discharge information. Patient expressed understanding and was given the opportunity to ask questions, all of which were satisfactorily answered prior to discharge home. Critical care attestation.: If time is entered above; I have spent that time in minutes in the direct care of this critically ill patient, excluding procedure time. ED Disposition Clinical Impression: Left knee injury Qualifiers: Encounter type: initial encounter Qualified Code(s): S89.92XA - Unspecified injury of left lower leg, initial encounter Disposition: TO HOME OR SELFCARE Is pt being admited?: No Does the pt Need Aspirin: No Condition: Stable Instructions: Anterior Cruciate Ligament Tear Additional Instructions: Take Tylenol every 4 hours as needed for pain. Take Naprosyn twice daily with food as needed for pain. Wear knee immobilizer as directed. Use crutches as needed. Keep left knee elevated as often as possible to reduce swelling. Apply ice to affected area as needed to reduce swelling. Follow-up with Dr. Vanegas, orthopedics, this week. Call tomorrow to schedule an appointment. See referral information below. Bring a copy of today's results with you to your follow-up appointment. Return to the emergency department immediately for new or worsening symptoms. Prescriptions: Naproxen 500 mg PO BID #20 tablet Referrals: RONNIE VANEGAS MD [Staff Physician] - 3-5 Days Time of Disposition: 21:12
--- NOTE | 2020-07-19 21:05 | XRay Report ---
LEFT KNEE 3 VIEW(S) INDICATION / CLINICAL INFORMATION: MAIN COMPARISON: 04/09/2016 FINDINGS: BONES / JOINT(S): Slightly irregular appearance of the lateral tibial spine when compared to the prio r radiograph from 04/09/2016. The cortex appears slightly up lifted in this region possibly representi ng a small ACL avulsion injury. Consider further evaluation with MRI. No dislocation. No acute displa justus fracture. No significant arthritis. SOFT TISSUES: No significant abnormality. ADDITIONAL FINDINGS: None. Signer Name: Fox Monson MD Signed: 07/19/2020 9:01 PM Workstation Name: [id number]
== END 2020-07-19 21:50 | disposition home or self-care (01) ==
LOC: ED 18:48
DX: S89.92XA Unspecified injury of left lower leg, initial encounter (principal); Z79.899 Other long term (current) drug therapy; W01.0XXA Fall on same level from slipping, tripping and stumbling without subsequent striking against object, initial encounter; Y93.89 Activity, other specified; Y92.89 Other specified places as the place of occurrence of the external cause; Y99.8 Other external cause status
CPT/HCPCS: 99283

== ENCOUNTER 2021-05-30 07:07 | Emergency (ER) | payer SELFPAY ==
[2021-05-30 08:17] VITALS: BP 115/64
--- NOTE | 2021-05-30 08:34 | Emergency Department Report ---
Minor Respiratory - HPI Chief Complaint: Sore Throat Stated Complaint: SORE THROAT/EAR PAIN Time Seen by Provider: 05/30/21 08:27 Duration: 2 Days Pain Location: Throat Severity: mild Minor Respiratory: Yes Sore Throat, Yes Able to Tolerate Fluids, Yes Ear Pain, No Rhinorrhea, No Cough, No Sick Contacts, No Hemoptysis, No Chest Pain, No Shortness of Breath, No Fever Other History: Patient is a 26-year-old male that comes to the emergency room with sore throat and ear pain. He denies fever at home but does endorse chills. He is not immunized for Covid. He is ambulatory nontoxic and [id number] on arrival to triage. ED Review of Systems ROS: Stated complaint: SORE THROAT/EAR PAIN Other details as noted in HPI Comment: All other systems reviewed and negative ED Past Medical Hx - Past Medical History Previous Medical History?: No - Surgical History Past Surgical History?: No - Family History Family history: no significant - Social History Smoking Status: Never Smoker Substance Use Type: None - Medications Home Medications: Home Medications Medication Instructions Recorded Confirmed Last Taken Type Azithromycin [Zithromax] 250 mg PO DAILY #6 tablet 09/29/16 Unknown Rx Sulfamethoxazole/Trimethoprim 1 each PO BID #20 tablet 09/29/16 Unknown Rx [Bactrim DS TAB] traMADoL [Ultram 50 MG tab] 50 mg PO Q6HR PRN #20 tablet 09/29/16 Unknown Rx Dexchlorpheniram/Phenylephrine 1 each PO Q6H #20 tab 03/02/18 Unknown Rx [Rymed Tablet] Ibuprofen [Motrin 800 MG tab] 800 mg PO Q8HR PRN #30 tablet 03/02/18 Unknown Rx Albuterol Mdi (or & Nicu Only) 2 puff IH Q4HR PRN #1 inhalation 09/21/18 Unknown Rx [ProAir HFA Inhaler] Azithromycin [Zithromax Z-MERCY] 250 mg PO DAILY #6 tablet 09/21/18 Unknown Rx Benzonatate [Tessalon Perles] 100 mg PO Q8HR PRN #20 capsule 09/21/18 Unknown Rx Cetirizine HCl [Zyrtec 10mg tab] 10 mg PO DAILY #30 tablet 09/21/18 Unknown Rx Codeine Phosphate/Guaifenesin 180 ml PO Q12HR PRN #180 liquid 09/21/18 Unknown Rx [Guaifenesin-Codeine Syrup] predniSONE [Deltasone] 20 mg PO DAILY #15 tablet 09/21/18 Unknown Rx Naproxen 500 mg PO BID #20 tablet 07/19/20 Unknown Rx Amoxicillin [Trimox CAP] 500 mg PO BID #20 capsule 05/30/21 Unknown Rx Minor Respiratory Exam - Exam General: Vital signs noted. No distress. Alert and acting appropriately. HEENT: Yes Pharyngeal Erythema, Yes Pharyngeal Exudates, Yes Moist Mucous Membranes, No Rhinorrhea, No Conjuctival Injection, No Frontal Tenderness, No Maxillary Tenderness Ear: Neither TM Bulge, Neither TM Erythema, Neither EAC Pain, Neither EAC Discharge Neck: Yes Supple, No Adenopathy Lungs: Yes Good Air Exchange, No Wheezes, No Ronchi, No Stridor, No Cough, No Labored Respirations, No Retractions, No Use of Accessory Muscles, No Other Abnormal Lung Sounds Heart: Yes Regular, No Murmur Abdomen: Yes Normal Bowel Sounds, No Tenderness, No Peritoneal Signs Skin: No Rash, No Edema Neurologic: Alert and oriented, no deficits. Musculoskeletal: Unremarkable. ED Course Vital Signs 05/30/21 08:16 Temperature 97.5 F L Pulse Rate 55 L Respiratory 16 Rate Blood Pressure 115/64 O2 Sat by Pulse 100 Oximetry ED Medical Decision Making - Medical Decision Making Vital Signs 05/30/21 08:16 Temperature 97.5 F L Pulse Rate 55 L Respiratory 16 Rate Blood Pressure 115/64 O2 Sat by Pulse 100 Oximetry Uvula is boggy, throat is red with exudate. Patient taking p.o. Patient controlling saliva. Patient being discharged home with discharge plan of care including medications, diet, activity and follow-up. He verbalizes understanding of plan of care. - Differential Diagnosis uri Critical care attestation.: If time is entered above; I have spent that time in minutes in the direct care of this critically ill patient, excluding procedure time. ED Disposition Clinical Impression: Exudative pharyngitis, Uvulitis Disposition: HOME / SELF CARE / HOMELESS Is pt being admited?: No Does the pt Need Aspirin: No Condition: Stable Instructions: Pharyngitis, [id number] Additional Instructions: Medication as ordered today until gone Then follow-up with your primary care doctor Referral below Motrin or Tylenol for pain Prescriptions: Amoxicillin [Trimox CAP] 500 mg PO BID #20 capsule Referrals: TJ JACOB MD [Staff Physician] - 3-5 Days Time of Disposition: 08:35
== END 2021-05-30 09:05 | disposition home or self-care (01) ==
LOC: ED 07:07
DX: J02.9 Acute pharyngitis, unspecified (principal); K12.2 Cellulitis and abscess of mouth
CPT/HCPCS: 99282

== ENCOUNTER 2021-10-11 07:47 | Emergency (ER) | payer SELFPAY ==
[2021-10-11 08:02] VITALS: BP 113/63
--- NOTE | 2021-10-11 10:42 | XRay Report ---
RIGHT ANKLE 3 VIEW(S) INDICATION / CLINICAL INFORMATION: injury, pain COMPARISON: None available. FINDINGS: BONES / JOINT(S): No acute fracture or subluxation. No significant arthritis. SOFT TISSUES: No significant abnormality. ADDITIONAL FINDINGS: None. IMPRESSION: 1. No acute findings. Signer Name: Ras Castillo MD Signed: 10/11/2021 10:37 AM Workstation Name: [id number]
[2021-10-11] MEDS ORDERED: KETOROLAC 10 MG TAB PO ONE (11:04)
[2021-10-11] MEDS ORDERED: oxyCODONE /ACETAMINOPHEN 5-325MG TAB PO ONE (11:04)
--- NOTE | 2021-10-11 11:40 | Emergency Department Report ---
ED Lower Extremity HPI - General Chief Complaint: Extremity Injury, Lower Stated Complaint: TWISTED ANKLE Time Seen by Provider: 10/11/21 09:55 Source: patient Mode of arrival: Ambulatory Limitations: Physical Limitation - History of Present Illness Initial Comments: 26-year-old male presents to the emergency department for evaluation of right ankle pain and swelling. He states that he twisted his ankle yesterday has had pain and swelling since then. He states that he has been able to ambulate on his ankle but pain is 8 out of 10. MD Complaint: ankle injury -: Gradual, days(s) (1) Injury: Ankle: Right Severity: moderate Severity scale (0 -10): 6 Worsens With: weight bearing Context: walking Associated Symptoms: swelling, able to partially bear weight. denies: snap/pop sensation, numbness, tingling - Related Data Previous Rx's Medication Instructions Recorded Last Taken Type Azithromycin [Zithromax] 250 mg PO DAILY #6 tablet 09/29/16 Unknown Rx Sulfamethoxazole/Trimethoprim 1 each PO BID #20 tablet 09/29/16 Unknown Rx [Bactrim DS TAB] traMADoL [Ultram 50 MG tab] 50 mg PO Q6HR PRN #20 tablet 09/29/16 Unknown Rx Dexchlorpheniram/Phenylephrine 1 each PO Q6H #20 tab 03/02/18 Unknown Rx [Rymed Tablet] Ibuprofen [Motrin 800 MG tab] 800 mg PO Q8HR PRN #30 tablet 03/02/18 Unknown Rx Albuterol Mdi (or & Nicu Only) 2 puff IH Q4HR PRN #1 inhalation 09/21/18 Unknown Rx [ProAir HFA Inhaler] Azithromycin [Zithromax Z-MERCY] 250 mg PO DAILY #6 tablet 09/21/18 Unknown Rx Benzonatate [Tessalon Perles] 100 mg PO Q8HR PRN #20 capsule 09/21/18 Unknown Rx Cetirizine HCl [Zyrtec 10mg tab] 10 mg PO DAILY #30 tablet 09/21/18 Unknown Rx Codeine Phosphate/Guaifenesin 180 ml PO Q12HR PRN #180 liquid 09/21/18 Unknown Rx [Guaifenesin-Codeine Syrup] predniSONE [Deltasone] 20 mg PO DAILY #15 tablet 09/21/18 Unknown Rx Naproxen 500 mg PO BID #20 tablet 07/19/20 Unknown Rx Amoxicillin [Trimox CAP] 500 mg PO BID #20 capsule 05/30/21 Unknown Rx Naproxen [Naprosyn] 500 mg PO BID #14 tab 10/11/21 Unknown Rx Allergies Allergy/AdvReac Type Severity Reaction Status Date / Time No Known Allergies Allergy Verified 10/11/21 08:03 ED Review of Systems ROS: Stated complaint: TWISTED ANKLE Other details as noted in HPI Comment: All other systems reviewed and negative Constitutional: denies: chills, fever Respiratory: denies: shortness of breath, SOB with exertion, SOB at rest Cardiovascular: denies: chest pain, palpitations, dyspnea on exertion Gastrointestinal: denies: abdominal pain, nausea, vomiting Musculoskeletal: denies: back pain Neurological: denies: headache, weakness ED Past Medical Hx - Social History Smoking Status: Never Smoker Substance Use Type: None - Medications Home Medications: Home Medications Medication Instructions Recorded Confirmed Last Taken Type Azithromycin [Zithromax] 250 mg PO DAILY #6 tablet 09/29/16 Unknown Rx Sulfamethoxazole/Trimethoprim 1 each PO BID #20 tablet 09/29/16 Unknown Rx [Bactrim DS TAB] traMADoL [Ultram 50 MG tab] 50 mg PO Q6HR PRN #20 tablet 09/29/16 Unknown Rx Dexchlorpheniram/Phenylephrine 1 each PO Q6H #20 tab 03/02/18 Unknown Rx [Rymed Tablet] Ibuprofen [Motrin 800 MG tab] 800 mg PO Q8HR PRN #30 tablet 03/02/18 Unknown Rx Albuterol Mdi (or & Nicu Only) 2 puff IH Q4HR PRN #1 inhalation 09/21/18 Unknown Rx [ProAir HFA Inhaler] Azithromycin [Zithromax Z-MERCY] 250 mg PO DAILY #6 tablet 09/21/18 Unknown Rx Benzonatate [Tessalon Perles] 100 mg PO Q8HR PRN #20 capsule 09/21/18 Unknown Rx Cetirizine HCl [Zyrtec 10mg tab] 10 mg PO DAILY #30 tablet 09/21/18 Unknown Rx Codeine Phosphate/Guaifenesin 180 ml PO Q12HR PRN #180 liquid 09/21/18 Unknown Rx [Guaifenesin-Codeine Syrup] predniSONE [Deltasone] 20 mg PO DAILY #15 tablet 09/21/18 Unknown Rx Naproxen 500 mg PO BID #20 tablet 07/19/20 Unknown Rx Amoxicillin [Trimox CAP] 500 mg PO BID #20 capsule 05/30/21 Unknown Rx Naproxen [Naprosyn] 500 mg PO BID #14 tab 10/11/21 Unknown Rx ED Physical Exam - General Limitations: Physical Limitation General appearance: alert, in no apparent distress - Head Head exam: Present: atraumatic, normocephalic - Eye Eye exam: Present: normal appearance. Absent: conjunctival injection - Neck Neck exam: Present: normal inspection - Respiratory Respiratory exam: Absent: respiratory distress - Cardiovascular Cardiovascular Exam: Present: regular rate - GI/Abdominal GI/Abdominal exam: Present: soft. Absent: distended, tenderness - Expanded Lower Extremity Exam Right Ankle exam: Present: tenderness, swelling. Absent: full ROM, abrasion, laceration, ecchymosis, deformity, crepidus, dislocation, erythema Foot/Toe exam: Present: normal inspection Neuro vascular tendon exam: Present: no vascular compromise. Absent: pulse deficit, abnormal cap refill, extremity cold to touch, pallor Gait: Positive: observed and limited by pain - Back Exam Back exam: Present: normal inspection - Neurological Exam Neurological exam: Present: alert, oriented X3 - Psychiatric Psychiatric exam: Present: normal affect, normal mood - Skin Skin exam: Present: warm, dry, intact, normal color ED Course Vital Signs 10/11/21 07:59 Temperature 97.8 F Pulse Rate 64 Blood Pressure 113/63 [Right] O2 Sat by Pulse 98 Oximetry ED Lower Extremity MDM - Radiology Data Radiology results: report reviewed, image reviewed Right ankle pain: FINDINGS: BONES / JOINT(S): No acute fracture or subluxation. No significant arthritis. SOFT TISSUES: No significant abnormality. ADDITIONAL FINDINGS: None. IMPRESSION: 1. No acute findings. - Medical Decision Making 26-year-old male presents to the emergency department for evaluation of right ankle pain and swelling. He states that he twisted his ankle yesterday has had pain and swelling since then. He states that he has been able to ambulate on his ankle but pain is 8 out of 10. Right ankle x-ray without any acute abnormalities noted. Patient will be placed in a preformed ankle stirrup splint with Maycol wrap and discharged home with 7-day course of naproxen. He is advised to take medications as prescribed and follow- up with his primary care provider or orthopedics if no improvement or worsening symptoms. He is advised to return to the emergency department as needed. He verbalizes understanding of and agreement with plan of care. Critical care attestation.: If time is entered above; I have spent that time in minutes in the direct care of this critically ill patient, excluding procedure time. ED Disposition Clinical Impression: Right ankle pain Qualifiers: Chronicity: acute Qualified Code(s): M25.571 - Pain in right ankle and joints of right foot Disposition: HOME / SELF CARE / HOMELESS Is pt being admited?: No Does the pt Need Aspirin: No Condition: Stable Instructions: Heel Pad Atrophy Rehab-SportsMed, Musculoskeletal Pain, Joint Pain, [id number] Additional Instructions: Take medications as prescribed. Follow up with primary care provider or orthopedics if no improvement or worsening symptoms. Return to ed as needed. Prescriptions: Naproxen [Naprosyn] 500 mg PO BID #14 tab Referrals: TJ JACOB MD [Staff Physician] - 3-5 Days RONNIE DAVIS MD [Staff Physician] - 3-5 Days Forms: Work/School Release Form(ED) Time of Disposition: 11:39
== END 2021-10-11 12:46 | disposition home or self-care (01) ==
LOC: ED 07:47
DX: M25.571 Pain in right ankle and joints of right foot (principal); Z79.899 Other long term (current) drug therapy; X50.1XXA Overexertion from prolonged static or awkward postures, initial encounter; Y93.89 Activity, other specified; Y92.89 Other specified places as the place of occurrence of the external cause; Y99.8 Other external cause status
CPT/HCPCS: 99283